=== PATIENT | male | born 1980 | race Caucasian/White ===

== ENCOUNTER 2018-11-29 16:11 | Emergency (ER) | payer OTHER ==
[~2018-11-29] VITALS: Ht 182.9 cm; Wt 79.4 kg
[~2018-11-29 16:11] MED LIST: BENTYL20 MG PO; NORCO 5-325 TA1 EACH PO; ZOFRAN ODT4 MG PO
[2018-11-29] MEDS ORDERED: CLINDAMYCIN HC300 MG PO (19:19)
[2018-11-29 20:00] VITALS: BP 140/88
== END 2018-11-29 20:00 | disposition home or self-care (01) ==
LOC: ER 16:11
DX: L03.211 Cellulitis of face (principal); L70.0 Acne vulgaris; F17.210 Nicotine dependence, cigarettes, uncomplicated